=== PATIENT | male | born 1945 | race Caucasian/White ===

== ENCOUNTER → 2021-11-02 | Outpatient (CLI) | payer MEDICARE, OTHER | LOC: CARDFS 13:45 | PROVIDERS: ATTEND Nurse Practitioner Family | DX: R07.9 Chest pain, unspecified (principal); R06.02 Shortness of breath | CPT/HCPCS: 93306 ==

== ENCOUNTER → 2021-12-04 | Outpatient (CLI) | payer MEDICARE, OTHER ==
[2021-12-04 10:20] VITALS: BP 161/98
--- NOTE | 2021-12-04 12:05 | Cardiology Stress Test Report ---
Stress Test Report Date of Procedure/Referring: Date of Procedure: Dec 04, 2021 PCP Admitting Physician Admitting Physician: Attending Physician: Tracey Palomo Aprn Indications: CP Baseline Heart Rate: 70 Baseline Blood Pressure: Blood Pressure Systolic: 161 Blood Pressure Diastolic: 98 Baseline EKG: Baseline EKG: NSR Summary/Conclusion: Summary: In summary, the patient started exercising with a baseline heart rate, blood pressure and EKG mentioned above Patient was able to exercise for a total of 2 minutes on Jhon protocol, METs 3.4 Maximum heart rate 143 Maximum blood pressure 200/75 Stress EKG, Minimal nondiagnostic changes Recovery EKG , Return to baseline Conclusion: 1. Poor exercise tolerance for a total of 2 minutes on standard Jhon protocol achieving 97% of maximal expected heart rate, 3.4 METS. 2. Significant dyspnea on minimal exertion. Probably secondary to underlying lung disease 3. Severe hypertensive response to exercise with peak blood pressure 200/75 r eturn to baseline during recovery 4. Nondiagnostic EKG changes with exercise return to baseline during recovery 5. I would recommend evaluating Lexiscan Myoview stress test if there is a high suspicion of underlying coronary artery disease. Copy Copies To 1: [facility]/RACQUEL LEBLANC MD Dec 04, 2021 12:05
== END ==
LOC: CARD 10:00
PROVIDERS: ATTEND Nurse Practitioner Family
DX: R07.9 Chest pain, unspecified (principal); R06.02 Shortness of breath
CPT/HCPCS: 93017

== ENCOUNTER → 2022-02-09 | Outpatient (CLI) | payer MEDICARE, OTHER ==
--- NOTE | 2022-02-09 12:55 | Diagnostic Imaging Report ---
INDICATION: CALCULUS OF KIDNEY. TECHNIQUE: Single supine radiographs of the abdomen 10:20 AM CORRELATION STUDY: None FINDINGS: Calcification over bilateral renal silhouettes. On the right, there are at least 3-4 calcifications present, largest up to 3 mm. These project over the superior and inferior pole. On the left, there is a 6 mm calcification with inferior pole with suspect smaller punctate calcification in superior pole. No definitive calcification along the expected course of either ureter. Bowel gas pattern is unobstructed. IMPRESSION: 1. Bilateral nephrolithiasis. Dictated by: Dictated on workstation # [id number]
== END ==
LOC: RAD FS 10:11
PROVIDERS: ATTEND Urology
DX: N20.0 Calculus of kidney (principal)
CPT/HCPCS: 74018